=== PATIENT | male | born 1945 | race American Indian/Alaskan Native ===

== ENCOUNTER 2017-07-18 10:22 | Outpatient (CLI) | payer OTHER ==
--- NOTE | 2017-07-18 11:08 | XRay Report ---
Lumbar spine 3 views: History: Back pain. Findings: Normal height of vertebral bodies. Decrease in height of L2-L3, L3-L4 and L4-L5. Sclerotic articular surfaces with peripheral osteophytes suggesting degenerative changes. No fracture. No soft tissue calcification. Impression: Degenerative lumbar spine.
== END 2017-07-18 10:23 | disposition home or self-care (01) ==
LOC: SPVIMAG 10:22
PROVIDERS: ATTEND Internal Medicine
DX: M47.816 Spondylosis without myelopathy or radiculopathy, lumbar region (principal)
CPT/HCPCS: 72100

== ENCOUNTER 2017-08-03 14:29 | Outpatient (CLI) | payer OTHER ==
--- NOTE | 2017-08-03 15:08 | XRay Report ---
XRAY LEFT KNEE 3 VIEWS: 08/03/17 14:29:00 CLINICAL: Left knee pain. FINDINGS: No fracture or dislocation. Osteoarthritis of the medial joint with mild narrowing of the medial joint space and moderate size medial osteophytes. The lateral joint space is normal. Mild patellofemoral joint osteoarthritis. No joint effusion. Normal soft tissues. 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
== END 2017-08-03 14:30 | disposition home or self-care (01) ==
LOC: SPVIMAG 14:29
PROVIDERS: ATTEND Internal Medicine
DX: M17.12 Unilateral primary osteoarthritis, left knee (principal)